=== PATIENT | female | born 1990 | race Caucasian/White ===

== ENCOUNTER 2019-05-13 04:40 | Inpatient (IN) | payer OTHER ==
[~2019-05-13] VITALS: Ht 165.1 cm; Wt 86.6 kg
[2019-05-13] MEDS ORDERED: OXYTOCIN/0.9 % SODIUM CHLORIDE 1,000 ML IV SCH (05:13)
[2019-05-13] MEDS ORDERED: NALBUPHINE HCL 10 MG/ML AMP IVP PRN (05:15)
[2019-05-13] MEDS ORDERED: NALBUPHINE HCL 10 MG/ML AMP IM PRN (05:15)
[2019-05-13] MEDS ORDERED: DINOPROSTONE 10 MG SUPP VG ONE (05:15)
[2019-05-13 05:22] VITALS: BP_SYST 135
[2019-05-13 05:59] LABS: BASOPHILS % (AUTO) 0.2 % (0.0-2.0); EOSINOPHILS # (AUTO) 0.1 K/uL (0.0-0.4); EOSINOPHILS % (AUTO) 0.6 % (0.0-4.0); HEMATOCRIT 36.8 % (36-48); HEMOGLOBIN 12.3 g/dL (12.0-16.0); LYMPHOCYTES # (AUTO) 3.7 K/uL (1.0-5.5); LYMPHOCYTES % (AUTO) 28.7 % (20.5-51.5); MEAN CORPUSCULAR HEMOGLOBIN 30 pg (27-31); MEAN CORPUSCULAR HGB CONC 34 % (32-36); MEAN CORPUSCULAR VOLUME 90 fL (79.0-98.0); MONOCYTES # (AUTO) 0.9 K/uL (0.0-1.0); MONOCYTES % (AUTO) 6.9 % (1.7-9.3); NEUTROPHILS # (AUTO) 8.2 K/uL (1.8-7.7); NEUTROPHILS % (AUTO) 63.6 % (40.0-70.0); PLATELET COUNT (AUTO) 179 K/uL (130-430); RED BLOOD CELL COUNT(AUTO) 4.11 MIL/uL (4.2-6.2); RED CELL DISTRIBUTION WIDTH 14.4 % (9.0-15.0)
[2019-05-13] MEDS ORDERED: FAMOTIDINE 20 MG TABLET PO PRN (11:45)
[2019-05-13] MEDS ORDERED: DIPHENHYDRAMINE HCL 25 MG CAPSULE PO PRN (11:45)
[2019-05-13] MEDS ORDERED: ONDANSETRON HCL 4 MG/2 ML VIAL IVP PRN (11:45)
[2019-05-13] MEDS: LR 1,000 ML IV SCH (22:10)
[2019-05-14] MEDS: LR 1,000 ML IV SCH (06:05)
[2019-05-14] MEDS ORDERED: fentaNYL CITRATE/PF 100 MCG/2 ML AMP ONE (10:03)
[2019-05-14] MEDS ORDERED: ROPIVACAINE HCL/PF 0.2% 200 ML ONE (10:03)
[2019-05-14] MEDS ORDERED: LR 500 ML IV ONE ×2 (10:39)
[2019-05-14] MEDS ORDERED: ePHEDrine sulfate 50 MG/ML VIAL IVP PRN ×2 (10:45)
[2019-05-14] MEDS ORDERED: fentaNYL CITRATE/PF 100 MCG/2 ML AMP EP ONE ×2 (10:45)
[2019-05-14] MEDS ORDERED: FENT2mCg/mL-ROPIVA0.2%/NS EPID 200 ML EP SCH (10:45)
[2019-05-14] MEDS ORDERED: OXYTOCIN/0.9 % SODIUM CHLORIDE 1,000 ML IV ONE (17:15)
[2019-05-14] MEDS ORDERED: OXYCODONE/ACETAMINOPHEN 5-325 TABLET PO PRN (17:15)
[2019-05-14] MEDS ORDERED: MEASLES,MUMPS&RUBELLA VACC/PF 12500 UNIT/0.5 ML VIAL SUBQ PRN (17:15)
[2019-05-14] MEDS ORDERED: WITCH HAZEL LEAF 1 MED.PAD MED.PAD TP PRN (17:15)
[2019-05-14] MEDS ORDERED: DERMOPLAST SPRAY TP PRN (17:15)
[2019-05-14] MEDS ORDERED: ANUSOL 1 EA SUPP.RECT (PREPARATION H) RC PRN (17:15)
[2019-05-14] MEDS ORDERED: METHYLERGONOVINE MALEATE 0.2 MG TABLET PO PRN (17:15)
[2019-05-14] MEDS ORDERED: OXYTOCIN/0.9 % SODIUM CHLORIDE 1,000 ML IV SCH (17:15)
[2019-05-14] MEDS ORDERED: HYDROCORTISONE 0.5%, 28.35 GM TOPICAL CREAM TP PRN (17:15)
[2019-05-14] MEDS ORDERED: LANOLIN 7 GM OINT. TP PRN (17:15)
[2019-05-14] MEDS ORDERED: HYDROcodone/ACETAMIN 5-325 MG TAB (NORCO/ VICODIN) PO PRN (17:15)
[2019-05-14] MEDS ORDERED: SENNOSIDES/DOCUSATE SODIUM 1 TAB TABLET(SENOKOT-S) PO PRN (17:15)
[2019-05-14] MEDS ORDERED: DIPH-TET-PERTUS Vaccine 0.5 ML VIAL (ADACEL) I.M. PRN (17:15)
[2019-05-14] MEDS: IBUPROFEN 600 MG TABLET PO PRN ×2 (17:58→23:52)
[2019-05-14] MEDS ORDERED: NEOMY SULF/BACITRAC ZN/POLY 28 GM OINT..GM. TP PRN (19:30)
[2019-05-14] MEDS ORDERED: TEMAZEPAM 15 MG CAPSULE PO PRN (21:00)
[2019-05-14] MEDS: DOCUSATE SODIUM 100 MG CAPSULE PO PRN (21:51)
[2019-05-15] MEDS: IBUPROFEN 600 MG TABLET PO PRN ×5 (00:03→23:47)
[2019-05-15] MEDS: DOCUSATE SODIUM 100 MG CAPSULE PO PRN ×2 (06:07→23:48)
[2019-05-15 06:56] LABS: HEMATOCRIT 31.1 % (36-48); HEMOGLOBIN 10.6 g/dL (12.0-16.0)
[2019-05-15] MEDS ORDERED: ROPIVACAINE 40 MG/20 ML AMP EP ONE (09:45)
[2019-05-15] MEDS ORDERED: MINERAL OIL 30 ML UDC PO ONE (09:46)
[2019-05-16] MEDS: IBUPROFEN 600 MG TABLET PO PRN (05:50)
== END 2019-05-16 09:20 | disposition home or self-care (01) | DRG 807 ==
LOC: SPU 04:40
PROVIDERS: ADMIT Obstetrics & Gynecology; ATTEND Obstetrics & Gynecology
PROC: 10E0XZZ Delivery of Products of Conception, External Approach (ICD-10-PCS; principal; 2019-05-14)
PROC: 0HQ9XZZ Repair Perineum Skin, External Approach (ICD-10-PCS; 2019-05-14)
PROC: 3E0R3BZ Introduction of Anesthetic Agent into Spinal Canal, Percutaneous Approach (ICD-10-PCS; 2019-05-14)
PROC: 00HU33Z Insertion of Infusion Device into Spinal Canal, Percutaneous Approach (ICD-10-PCS; 2019-05-14)
PROC: 10907ZC Drainage of Amniotic Fluid, Therapeutic from Products of Conception, Via Natural or Artificial Opening (ICD-10-PCS; 2019-05-14)
PROC: 3E0P7VZ Introduction of Hormone into Female Reproductive, Via Natural or Artificial Opening (ICD-10-PCS; 2019-05-14)
PROC: 3E033VJ Introduction of Other Hormone into Peripheral Vein, Percutaneous Approach (ICD-10-PCS; 2019-05-14)
DX: O70.0 First degree perineal laceration during delivery (principal); Z37.0 Single live birth; Z3A.40 40 weeks gestation of pregnancy; Z88.0 Allergy status to penicillin
CPT/HCPCS: 36415; 85018-TC; 85025; 86592; 86886; 86900; 86901; J2590; J2795; J3010; J7120